=== PATIENT | male | born 1970 | race African-American/Black ===

== ENCOUNTER 2018-01-01 02:15 | Emergency (ER) | payer MEDICAID, SELFPAY ==
[2018-01-01 02:18] VITALS: BP 186/113; PULSE 68; RESP 16; TEMP 37; O2SAT 100; BMI 36.6
--- NOTE | 2018-01-01 03:16 | ED.VISSUMM ---
- ER Visit Summary Date of Service: 01/01/18 Chief Complaint: Sinus pressure History of Present Illness: The patient is a 47 M presenting with sinus pressure. He states he has had this for the past 2 weeks. It worsened over the last 2 days. He has had postnasal drainage. Denies sore throat. Denies fever. He states he woke up tonight with facial pain. It was not relieved by Aleve. Denies other complaints. Physical Examination: Vitals are stable. Patient is afebrile. Alert no acute distress. HEENT exam left maxillary sinus tenderness. No intraoral fluctuance. Pharynx is normal. Neck is supple. No meningismus Lungs are clear and equal bilaterally. Heart is regular rate and rhythm. Abdomen is soft nontender nondistended. Extremities are unremarkable. Skin is warm and dry. No rash No focal neurologic deficit. Remainder of exam is unremarkable. Emergency Department Course and Treatment: Patient states his symptoms have been ongoing for 2 weeks. He will be given doxycycline due to penicillin allergy. He was given Mucinex. Advised to follow-up with his primary care physician. Advised return to the ED for worsening complaints. Disposition: Discharge home Impression: Sinusitis This note was generated with [employer] dictation software. It may contain incorrect words, spelling, and punctuation that were not noted in review of the chart prior to signing ED Disposition - Plan for ED Patient: Chief Complaint: Cold Sx Referrals: Priyank Tam MD [Primary Care Provider] -
--- NOTE | 2018-01-01 03:22 | ED.DEP ---
ED Disposition - Plan for ED Patient: Chief Complaint: Cold Sx Instructions: ED Sinusitis Abx Tx Prescriptions: Doxycycline Monohydrate 100 mg PO BID #20 capsule Guaifenesin [Mucinex] 1,200 mg PO BID PRN #20 tbmp.12hr PRN Reason: Congestion Referrals: Priyank Tam MD [Primary Care Provider] -
[2018-01-01] MEDS: Doxycycline 100 MG CAPSULE PO (03:28)
[2018-01-01] MEDS: guaiFENesin 1,200 MG Tablet 1200 MG PO (03:28)
[2018-01-01 03:33] VITALS: BP 186/114; PULSE 56; RESP 18; O2SAT 99
== END 2018-01-01 03:34 | disposition home or self-care (01) ==
LOC: ED 03:26
PROVIDERS: Emergency Provider Emergency Medicine; Family Provider Family Medicine; PCP Family Medicine
DX: J32.9 Chronic sinusitis, unspecified (principal); I10 Essential (primary) hypertension; K21.9 Gastro-esophageal reflux disease without esophagitis; Z72.0 Tobacco use; Z88.0 Allergy status to penicillin
CPT/HCPCS: 99283

== ENCOUNTER 2018-06-12 16:04 | Emergency (ER) | payer MEDICAID, SELFPAY ==
[2018-06-12 16:04] VITALS: BP 169/116; PULSE 61; RESP 18; TEMP 36.3; O2SAT 98; BMI 38.2
--- NOTE | 2018-06-12 16:17 | ED.VISSUMM ---
- ER Visit Summary Date of Service: 06/12/18 Chief Complaint: Left hip pain History of Present Illness: The patient is a 47 M who presents with left hip pain that began after getting out of his pickup truck today. Patient denies falling. Patient states the pain is worse with any movement. Patient describes the pain as burning and sharp. Patient denies any radiation of the pain. Patient denies any paresthesias or weakness. Physical Examination: Vital signs are stable. Patient is afebrile. Patient is in no acute distress. There is tenderness over the lateral posterior aspect of the left hip. There is no shortening or external rotation. There is no other deformity noted. Range of motion was limited on internal and external rotation secondary to pain. There is also some limitations on flexion secondary to pain. Sensation was intact to light touch in all dermatomes of the lower extremities bilaterally. There are no motor deficits noted. Pedal pulses are equal bilaterally. The remaining physical exam is within normal limits. Test Results: X-rays of the left hip were obtained. There is no acute fracture. Emergency Department Course and Treatment: Patient was given injection of morphine here. Patient was given a prescription for Naprosyn. Patient was instructed to apply ice to the left hip. Patient was instructed to follow-up with his primary care physician in 7-10 days. Patient understood and was agreeable with the plan. All questions were answered. Disposition: Discharged home Impression: Left hip strain This note was generated with [employer] dictation software. It may contain incorrect words, spelling, and punctuation that were not noted in review of the chart prior to signing ED Disposition - Plan for ED Patient: Disposition: Home or Assisted Living Chief Complaint: Lower Extremity Injury Diagnosis: Muscle strain of left hip Instructions: ED Sprain Hip Prescriptions: Naproxen [Naprosyn] 500 mg PO BID PRN #20 tab Referrals: Priyank Tam MD [Primary Care Provider] -
[2018-06-12 16:43] LABS: Absolute Lymphocyte Count 1.89 X10^3/ul (0.83-4.51); Absolute Neutrophil Count 5.9 X10^3/uL (2.0-7.7); Basophil# 0.03 X10^3/uL; Basophil% 0.4 % (0-1); Eosinophil# 0.19 X10^3/uL; Eosinophils% 2.2 % (0-5); Hematocrit 41.4 % (40-54); Hemoglobin 13.9 g/dl (13.0-16.5); Lymphocyte # 1.89 X10^3/ul (4.0); Lymphocyte % 22.2 % (19-41); Mean Corp Hgb Conc 33.6 g/gl (32-36); Mean Corpuscular Volume 92.4 fL (80-94); Monocyte# 0.46 X10^3/uL; Monocyte% 5.4 % (0-10); Neutrophil # 5.94 X10^3/uL (2.7-7.7); Neutrophil % 69.8 % (47-70); POSITIVE COUNT NO; POSITIVE DIFFERENTIAL NO; POSITIVE MORPHOLOGY NO; Platelet Count 218 K/mm3 (150-450); RBC Distribution Width CV 13.3 % (11.6-14.6); RBC Distribution Width SD 45.2 fl (35.1-43.9); Red Blood Count 4.48 M/mm3 (4.6-6.2); White Blood Count 8.5 K/mm3 (4.4-11.0)
[2018-06-12 16:58] LABS: ALB/GLOB Ratio 0.9 RATIO (0.9-2.4); AST(SGOT) 19 U/L (15-37); Alanine Aminotransfer ALT/SGPT 22 U/L (16-61); Albumin, Serum 3.7 g/dL (3.2-5.0); Alkaline Phosphatase 67 U/L (45-117); Anion Gap 6 (5-15); BUN 9 mg/dL (7-18); BUN/Creat Ratio 6.4 RATIO (10-20); Calcium,Total 8.8 mg/dL (8.5-10.1); Chloride 106 mmol/L (98-107); Creatinine, Serum 1.41 mg/dL (0.70-1.30); EST Glomerular Filtration Rate 57 mL/min (>60); Est Glom Filt Rate - Afr Amer 69 mL/min (>60); Estimated Creatinine Clearance 64.77 ml/min; Globulin 3.9 g/dL (2.2-4.2); Glucose 103 mg/dL (74-106); Potassium 2.9 mmol/L (3.5-5.1); Protein, Total 7.6 g/dL (6.4-8.2); Sodium Level 141 mmol/L (136-145)
[2018-06-12] MEDS: Morphine 4 MG/ML Syringe IV (17:03)
[2018-06-12 18:38] VITALS: BP 158/97; PULSE 53; RESP 14; O2SAT 99
== END 2018-06-12 18:58 | disposition home or self-care (01) ==
PROVIDERS: Emergency Provider Emergency Medicine; Family Provider Family Medicine; PCP Family Medicine
DX: S76.012A Strain of muscle, fascia and tendon of left hip, initial encounter (principal); X50.1XXA Overexertion from prolonged static or awkward postures, initial encounter; Y93.9 Activity, unspecified; Y92.89 Other specified places as the place of occurrence of the external cause; Y99.9 Unspecified external cause status; K21.9 Gastro-esophageal reflux disease without esophagitis; I10 Essential (primary) hypertension; M79.7 Fibromyalgia
CPT/HCPCS: 73502; 80053; 85025; 96372; 96374; 99283; A4216

== ENCOUNTER 2019-06-03 13:51 | Emergency (ER) | payer MEDICAID, SELFPAY ==
[2019-06-03 13:53] VITALS: BP 186/108; PULSE 63; RESP 14; TEMP 36.3; O2SAT 99; BMI 36.6
--- NOTE | 2019-06-03 14:41 | ED.DCSUM_ITS ---
- ER Visit Summary Date of Service: 06/03/19 Chief Complaint: Neck stiffness History of Present Illness: The patient is a 48 M history of arthritis, hypertension and congenitally only one kidney. Patient is never had any neck surgery. No recent neck injury. States he woke up this morning with neck stiffness. Denies any fever. No headache. No weakness in his arms or legs. He has had similar episodes like this before. He also states yesterday he punctured his right small finger with a carlee nail as it was sticking out and caught his hand on it. He denies any complaints just wants his tetanus updated. Physical Examination: Middle-aged male. No acute distress. Vital signs are stable afebrile. H EENT exam unremarkable. Neck he has paraspinal soft tissue tenderness and in his upper mid back. Trachea is midline. No lymphadenopathy. He has limited flexion extension of his neck due to discomfort. Limited rotation due to discomfort. Exam is consistent with muscle spasms. Lungs clear to auscultation bilaterally. Heart regular rhythm no murmur. Abdomen soft non tender. Extremities moves all 4. He has 5 5 motor strength with instructional paraprofessional strength bilaterally. Dorsi plantarflexion intact. Equal symmetric. Normal sensation. Normal range of motion both upper and lower extremities. Back reproducible paraspinal muscular tenderness. Neurologically is awake and alert with no focal motor deficits. He is acting appropriately. Right TM exam is unremarkable. He is a puncture wound on the right lateral small finger just distal to the metacarpal phalangeal joint. There is no significant swelling. He has full flexion extension. There is no acute signs of infection. No lymphangitic streaking. Hands neurovascular intact. Test Results: None Emergency Department Course and Treatment: This will be updated. He will be given Motrin for his neck pain. Examined history consistent with muscular skeletal neck pain. Treatment Plan: Motrin for pain. Skelaxin as a muscle relaxant. Follow-up if is not improving. Disposition: Discharge Impression: Musculoskeletal neck stiffness Puncture wound right hand Tetanus updated This note was generated with [employer] dictation software. It may contain incorrect words, spelling, and punctuation that were not noted in review of the chart prior to signing ED Disposition - Plan for ED Patient: Referrals: Priyank Tam MD [Primary Care Provider] -
--- NOTE | 2019-06-03 14:45 | ED.DEP ---
ED Disposition - Plan for ED Patient: Disposition: Home or Assisted Living Instructions: NECK PAIN, No Trauma Prescriptions: Ibuprofen [Motrin] 600 mg PO Q8H PRN PRN #20 tab PRN Reason: Pain Prescription Printed Metaxalone [Skelaxin] 800 mg PO TID #20 tab Prescription Printed Referrals: Priyank Tam MD [Primary Care Provider] - 1 Week if not improving Additional Instructions: Hot shower, warm compresses and massage for your neck. Motrin for pain and inflammation. Skelaxin for muscle spasms. Follow-up if not improving.
[2019-06-03] MEDS: Ibuprofen 600 MG Tablet PO (14:50)
[2019-06-03] MEDS: Diphth,Pertuss(Acell),Tet Vac 0.5 ML Vial IM (14:51)
== END 2019-06-03 15:14 | disposition home or self-care (01) ==
PROVIDERS: Emergency Provider Emergency Medicine; Family Provider Family Medicine; PCP Family Medicine
DX: S61.236A Puncture wound without foreign body of right little finger without damage to nail, initial encounter (principal); S61.431A Puncture wound without foreign body of right hand, initial encounter; W45.0XXA Nail entering through skin, initial encounter; Y93.9 Activity, unspecified; Y92.89 Other specified places as the place of occurrence of the external cause; Y99.8 Other external cause status; M54.2 Cervicalgia; I10 Essential (primary) hypertension; Z23 Encounter for immunization
CPT/HCPCS: 90471; 90715; 99283

== ENCOUNTER 2021-01-04 01:42 | Emergency (ER) | payer MEDICAID, SELFPAY ==
[2021-01-04 01:43] VITALS: BP 165/88; PULSE 75; RESP 18; TEMP 36.6; O2SAT 100; BMI 35.5
--- NOTE | 2021-01-04 02:16 | RAD_ITS ---
STUDY: X-RAY - RIGHT SHOULDER REASON FOR EXAM: Male, 50 years old. pain TECHNIQUE: 3 view(s) of the shoulder. COMPARISON: None. FINDINGS: There is mild degenerative arthrosis of the glenohumeral articulation. There is degenerative arthrosis of the acromioclavicular joint without inferior osseous spur formation. Normal acromion. Normal humeral head and visualized proximal humerus. The soft tissue structures are unremarkable. Normal visualized pulmonary apex. RAD/Shoulder min 2 Views IMPRESSION: Degenerative arthrosis of the shoulder. Electronically Signed: Ana Luisa Gar MD at 2:45 EDT Tel , Service support ,
[2021-01-04] MEDS: Ibuprofen 600 MG Tablet PO (02:25)
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
[2021-01-04] MEDS: Ketorolac 60 MG/2 ML Vial IM (03:16)
== END 2021-01-04 03:17 | disposition home or self-care (01) ==
LOC: ED 02:43
PROVIDERS: Emergency Provider Emergency Medicine; PCP Family Medicine
DX: M75.51 Bursitis of right shoulder (principal); I10 Essential (primary) hypertension; K21.9 Gastro-esophageal reflux disease without esophagitis
CPT/HCPCS: 73030

== ENCOUNTER 2021-01-04 23:15 | Emergency (ER) | payer MEDICAID, SELFPAY ==
[2021-01-04 01:43] VITALS: BMI 35.5
[2021-01-04 23:19] VITALS: BP 154/96; PULSE 84; RESP 16; TEMP 36.2; O2SAT 98; BMI 33.2
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
[2021-01-04 23:26] VITALS: BP 137/84; PULSE 76; RESP 16; O2SAT 95
[2021-01-04] MEDS: Lidocaine 1% (20 ml mdv) 20 ML Vial INFILT (23:46)
--- NOTE | 2021-01-05 00:12 | ED.RN ---
[facility] WAS CALLED FOR A EVALUATION
[2021-01-05] MEDS: Diphth,Pertuss(Acell),Tet Vac 0.5 ML Vial IM (00:16)
[2021-01-05] MEDS: metroNIDAZOLE 500 MG Tablet PO (00:16)
[2021-01-05 00:20] VITALS: BP 128/80; PULSE 99; RESP 17; TEMP 36.7; O2SAT 97
[2021-01-05] MEDS: CEFUROXIME AXETIL 250 MG TABLET 500 MG PO (00:26)
[2021-01-05 01:07] VITALS: PULSE 70; RESP 16; O2SAT 97
== END 2021-01-05 01:08 | disposition home or self-care (01) ==
PROVIDERS: Emergency Provider Emergency Medicine; PCP Family Medicine
DX: S01.551A Open bite of lip, initial encounter (principal); W54.0XXA Bitten by dog, initial encounter; Z88.0 Allergy status to penicillin; Z23 Encounter for immunization
CPT/HCPCS: 12013; 73030; 90471; 90715; 96372; 99283; 99285

== ENCOUNTER 2021-01-06 21:03 | Emergency (ER) | payer MEDICAID, SELFPAY ==
--- NOTE | 2021-01-06 21:04 | EKG12_ITS ---
Test Reason : [facility] Blood Pressure : / mmHG Vent. Rate : 061 BPM Atrial Rate : 061 BPM P-R Int : 174 ms QRS Dur : 110 ms QT Int : 428 ms P-R-T Axes : 075 070 064 degrees QTc Int : 430 ms Normal sinus rhythm Minimal voltage criteria for LVH, may be normal variant Borderline ECG Confirmed by ANUJ FUNEZ, ROXANA ([id number]), fan mail editor [employer] ([id number]) on 01/10/2021 10:29:44 AM Referred By: JENNI Confirmed By:ROXANA LESLIE MD
[2021-01-06 21:05] VITALS: BP 146/98; PULSE 56; RESP 28; TEMP 35.6; O2SAT 99
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
[2021-01-06] MEDS: Ziprasidone IM 20 MG/ML VIAL IM (21:11)
[2021-01-06] MEDS: LORazepam 2 MG/ML Syringe IM (21:11)
[2021-01-06] MEDS: DiphenhydrAMINE 50 MG/ML Syringe IM (21:11)
[2021-01-06 21:18] VITALS: BP 126/86; PULSE 76; RESP 19; O2SAT 98
--- NOTE | 2021-01-06 21:22 | CT_ITS ---
STUDY: CT BRAIN WITHOUT CONTRAST REASON FOR EXAM: Male, 50 years old. Confusion RADIATION DOSAGE (If Supplied By Facility): CTDIvol = ( 44.99 ) mGy, DLP = ( 846.73 ) mGycm TECHNIQUE: Transaxial CT imaging of the brain was performed without administration of intravenous contrast material. Individualized dose optimization techniques were used for this CT. COMPARISON: 03/25/2013 FINDINGS: Normal soft tissue structures. There is a stable ground glass appearing bony density within the sphenoid bone within the sphenoid sinus with an appearance most consistent with fibrous dysplasia. Normal size ventricles and extra-axial spaces for the patient''s age. Normal white matter tracts of the cerebral hemispheres. Normal basal ganglia and thalami. Normal brainstem. Normal cerebellum. There is no intracranial hemorrhage. There are no findings of an acute ischemic infarction. CT/Brain/Head without Contrast IMPRESSION: No acute intracranial process. Electronically Signed: Thania Tamayo MD at 22:12 EDT Tel , Service support ,
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
[2021-01-06 21:34] LABS: Absolute Lymphocyte Count 2.51 X10^3/uL (0.83-4.51); Absolute Neutrophil Count 4.9 X10^3/uL (2.0-7.7); Basophil# 0.04 X10^3/uL; Basophil% 0.5 % (0-1); Eosinophils% 5.8 % (0-5); Hematocrit 35.5 % (40-54); Hemoglobin 11.7 g/dL (13.0-16.5); Lymphocyte # 2.51 X10^3/ul (4.0); Lymphocyte % 29.3 % (19-41); Mean Corpuscular Volume 94.2 fL (80-94); Mean Platelet Vol. 9.6 fl (6.2-12.0); Monocyte# 0.59 X10^3/uL; Monocyte% 6.9 % (0-10); NRBC Flagged by Analyzer 0 % (0-5); Neutrophil % 57.1 % (47-70); Platelet Count 238 K/mm3 (150-450); RBC Distribution Width CV 12.7 % (11.6-14.6); RBC Distribution Width SD 43.8 fl (35.1-43.9); Red Blood Count 3.77 M/mm3 (4.6-6.2); White Blood Count 8.6 K/mm3 (4.4-11.0)
[2021-01-06 21:50] LABS: Anion Gap 8 (5-15); BUN 23 mg/dL (7-18); BUN/Creat Ratio 12.6 RATIO (10-20); Calcium,Total 8.8 mg/dL (8.5-10.1); Chloride 109 mmol/L (98-107); Creatinine, Serum 1.83 mg/dL (0.70-1.30); EST Glomerular Filtration Rate 42 mL/min (>60); Est Glom Filt Rate - Afr Amer 51 mL/min (>60); Estimated Creatinine Clearance 54.58 ml/min; Glucose 91 mg/dL (74-106); Potassium 3.4 mmol/L (3.5-5.1); Sodium Level 141 mmol/L (136-145)
--- NOTE | 2021-01-06 23:00 | ED.RN ---
RESTRAINTS DC AT THIS TIME
[2021-01-06 23:21] VITALS: BP 164/75; PULSE 55; RESP 14; O2SAT 98
[2021-01-06 23:39] LABS: Amphetamine Urine VISTA NEGATIVE (<1000 ng/mL); Barbiturate Urine VISTA NEGATIVE (< 200 ng/mL); Benzodiazepine Urine VISTA NEGATIVE (< 200 ng/mL); Cocaine Urine VISTA NEGATIVE (< 300 ng/mL); Ecstacy Urine VISTA NEGATIVE (< 500 ng/mL); Methadone Urine VISTA NEGATIVE (< 300 ng/mL); PCP Urine VISTA NEGATIVE (< 25 ng/mL); THC Urine VISTA POSITIVE (< 50 ng/mL); Vista UDS pH Range 5
[2021-01-07] VITALS (11 sets, daily range): BP systolic 133–148; BP diastolic 74–108; PULSE 69–76; RESP 14–17; TEMP 36.2; O2SAT 97–98
--- NOTE | 2021-01-07 00:54 | ED.RN ---
family updated on patient condition and status at this time
--- NOTE | 2021-01-07 01:25 | ED.RN ---
REPORT FAXED TO [facility]
--- NOTE | 2021-01-07 01:48 | ED.RN ---
CRISIS ON THE PHONE WITH THIS PT
--- NOTE | 2021-01-07 06:46 | ED.RN ---
patient being reviewed at [facility]
--- NOTE | 2021-01-07 06:47 | ED.RN ---
patient so asking to be updated once patient is discharged or transferred
[2021-01-07] MEDS: metroNIDAZOLE 500 MG Tablet PO ×2 (07:39→08:18)
[2021-01-07] MEDS: Pantoprazole Sodium 40 MG Tablet PO (08:16)
[2021-01-07] MEDS: Potassium Chloride Oral Tablet 20 MEQ PO (08:16)
[2021-01-07] MEDS: Triamterene 37.5MG/Hctz 25MG Capsule 1 CAP PO (08:17)
[2021-01-07] MEDS: Lisinopril 40 MG Tablet PO (08:17)
[2021-01-07] MEDS: NIFEdipine 30 MG Tablet PO (08:17)
[2021-01-07] MEDS: Paroxetine 20 MG Tablet PO (08:18)
[2021-01-07] MEDS: Carvedilol 25 MG Tablet PO (08:18)
[2021-01-07] MEDS: CEFUROXIME AXETIL 250 MG TABLET 500 MG PO (08:19)
--- NOTE | 2021-01-07 08:33 | ED.RN ---
PT UPDATED ABOUT PT DISPO.
--- NOTE | 2021-01-07 09:34 | ED.RN ---
pt glasses were dropped off by family at the main entrance, pt received glasses prior to leaving with ambulance.
== END 2021-01-07 09:32 ==
LOC: ED 21:17
PROVIDERS: Emergency Provider Emergency Medicine; PCP Family Medicine
DX: F30.9 Manic episode, unspecified (principal); F23 Brief psychotic disorder; F12.90 Cannabis use, unspecified, uncomplicated; F17.200 Nicotine dependence, unspecified, uncomplicated; I10 Essential (primary) hypertension; E78.5 Hyperlipidemia, unspecified; Z88.0 Allergy status to penicillin
CPT/HCPCS: 36415; 70450; 80048; 80307; 82077; 85025; 87426; 93005; 96372; 99285; J3486

== ENCOUNTER 2021-01-16 08:01 | Emergency (ER) | payer MEDICAID, SELFPAY ==
[2021-01-16] VITALS (9 sets, daily range): BP systolic 133–154; BP diastolic 76–113; PULSE 68–95; RESP 15–22; TEMP 35.7–36.7; O2SAT 98–100
--- NOTE | 2021-01-16 08:31 | EKG12_ITS ---
Test Reason : Blood Pressure : / mmHG Vent. Rate : 062 BPM Atrial Rate : 062 BPM P-R Int : 180 ms QRS Dur : 104 ms QT Int : 406 ms P-R-T Axes : 055 053 037 degrees QTc Int : 412 ms Normal sinus rhythm Normal ECG Confirmed by REBA FUNEZ, LAURO ([id number]), staff editor [employer] ([id number]) on 01/20/2021 9:25:34 AM Referred By: TALAT Confirmed By:LAURO BRITTON MD
--- NOTE | 2021-01-16 08:32 | ED.DCSUM_ITS ---
- ER Visit Summary Date of Service: 01/16/21 Chief Complaint: Manic episode History of Present Illness: The patient is a 50 M who presents with a manic episode that is been getting worse over the past 5 days. Patient states he has been feeling more manic and angry. Patient hit his right hand down on the table today and complains of pain in his right hand. Patient apparently went to his friend's house and was banging on his door this morning. Patient told his friend he needed help and needs to go see Juan Francisco. Patient's girlfriend moved out of his apartment because she was fearful that she might get hurt due to his agitation and manic episode. Patient denies any suicidal homicidal ideations. Patient denies any visual or auditory hallucinations. Physical Examination: Vital signs are stable. Patient is afebrile. Patient is in no acute distress. Oral mucosa is pink and moist. Neck is supple. Trachea is midline. There is no JVD. Heart was regular rate and rhythm. Lungs are clear and equal bilaterally. Abdomen is soft. Bowel sounds are normal. There is some mild periumbilical tenderness. There is a umbilical hernia that is easily reducible. There is no rebound or guarding noted. Cranial nerves II through XII are intact. There are no focal motor or sensory deficits noted. There is tenderness over the right hand and wrist area. There is no obvious deformity. There is good range of motion. There is some mild edema. Patient is calm and cooperative on exam. Patient denies any suicidal or homicidal ideations. Patient denies any visual or auditory hallucinations. Test Results: EKG was obtained. On my interpretation, it showed a normal sinus rhythm with a rate of 62. FL interval, QRS interval, and QTc intervals were all normal. [place] was normal. There are no acute ST or T wave changes. X-rays of the right hand were obtained. There are 3 views. On my interpretation, there is no acute fracture. There is an old healed fracture of the fifth metacarpal. There is no soft tissue swelling noted. Radiologist also interpreted the x-ray and agrees. CBC shows a slight anemia with a hemoglobin of 11.6 and hematocrit 35.4. Comprehensive metabolic profile was essentially within normal limits. Urinalysis does not show any evidence of urinary tract infection. Urine tox screen was positive for cannabinoids. Serum alcohol level was normal. Emergency Department Course and Treatment: Patient became more agitated here in the emergency department. Patient was given a dose of Geodon. Crisis counselor will be in to evaluate the patient. Patient became more detail. Patient was given a dose of Ativan. Patient had no improvement with this. Patient was given a repeat dose of Geodon. Crisis was able to arrange for inpatient admission. Patient will be transferred. Disposition: Transfer to psychiatric hospital Impression: 1. Agitation This note was generated with [employer] dictation software. It may contain incorrect words, spelling, and punctuation that were not noted in review of the chart prior to signing ED Disposition - Plan for ED Patient: Disposition: Psychiatric Hospital or Unit Diagnosis: Agitation Referrals: Priyank Tam MD [Primary Care Provider] -
--- NOTE | 2021-01-16 08:36 | RAD_ITS ---
HISTORY: Injury/Pain ADDITIONAL HISTORY: None provided. EXAMINATION/TECHNIQUE: XR Hand Min 3 Views Right Number of images including paperwork: 3 COMPARISON: None FINDINGS: BONES: No acute fracture. Old right fifth metacarpal fracture. JOINTS: No subluxation. SOFT TISSUES: No distinct foreign body. RAD/Hand Min 3 Views IMPRESSION: No acute osseous abnormality. at 0931 Reported and signed by: Amelia Matta MD Electronically Signed: Amelia Matta MD at 9:31 EDT Tel , Service support ,
[2021-01-16 08:48] LABS: Bacteria 0 SEEN /hpf (None Seen); Mucous, Urine 0 SEEN /hpf (<or=2+)
[2021-01-16 08:53] LABS: Absolute Lymphocyte Count 1.59 X10^3/uL (0.83-4.51); Absolute Neutrophil Count 3.9 X10^3/uL (2.0-7.7); Basophil# 0.03 X10^3/uL; Basophil% 0.5 % (0-1); Eosinophil# 0.31 X10^3/uL; Eosinophils% 4.9 % (0-5); Hematocrit 35.4 % (40-54); Hemoglobin 11.6 g/dL (13.0-16.5); Lymphocyte # 1.59 X10^3/ul (4.0); Lymphocyte % 25.2 % (19-41); Mean Corp Hgb Conc 32.8 g/dL (32-36); Mean Corpuscular Hgb 31.1 pg (27.0-32.0); Mean Corpuscular Volume 94.9 fL (80-94); Mean Platelet Vol. 9.1 fl (6.2-12.0); Monocyte# 0.47 X10^3/uL; Monocyte% 7.4 % (0-10); NRBC Flagged by Analyzer 0 % (0-5); Neutrophil # 3.89 X10^3/uL (2.7-7.7); Neutrophil % 61.7 % (47-70); Platelet Count 297 K/mm3 (150-450); RBC Distribution Width SD 45.5 fl (35.1-43.9); Red Blood Count 3.73 M/mm3 (4.6-6.2); White Blood Count 6.3 K/mm3 (4.4-11.0)
[2021-01-16 09:09] LABS: Color, Urine Yellow (Yellow); Glucose, Dipstick Normal (Normal); Ketone-Dipstick Negative (Negative); Leukocyte Esterase-Dipstick Negative /ul (Negative); Nitrite-Dipstick Negative (Negative); Occult Blood-Urine Negative /ul (Negative); Protein-Dipstick 15 mg/dl (Negative); Specific Gravity, Urine 1.025 (1.002-1.030); Urine Bilirubin Dipstick Negative (Negative); Urine Clarity Clear (Clear); Urine Urobilinogen 1 mg/dl (Normal)
[2021-01-16 09:13] LABS: AST(SGOT) 24 U/L (15-37); Alanine Aminotransfer ALT/SGPT 30 U/L (16-61); Albumin, Serum 3.4 g/dL (3.2-5.0); Alkaline Phosphatase 52 U/L (45-117); Anion Gap 3 (5-15); BUN 15 mg/dL (7-18); BUN/Creat Ratio 11.8 RATIO (10-20); Chloride 108 mmol/L (98-107); Creatinine, Serum 1.27 mg/dL (0.70-1.30); EST Glomerular Filtration Rate 64 mL/min (>60); Est Glom Filt Rate - Afr Amer 77 mL/min (>60); Estimated Creatinine Clearance 2.48 ml/min; Globulin 3.3 g/dL (2.2-4.2); Glucose 93 mg/dL (74-106); Potassium 3.5 mmol/L (3.5-5.1); Protein, Total 6.7 g/dL (6.4-8.2); Sodium Level 140 mmol/L (136-145)
[2021-01-16 09:15] LABS: Red Blood Cells-Urine 0-5 SEEN /hpf (0-5); Squamous Epithelial Cells - UA 0-5 SEEN /hpf (0-5); White Blood Cells 0-5 SEEN /hpf (0-5)
[2021-01-16 09:20] LABS: Amphetamine Urine VISTA NEGATIVE (<1000 ng/mL); Barbiturate Urine VISTA NEGATIVE (< 200 ng/mL); Benzodiazepine Urine VISTA NEGATIVE (< 200 ng/mL); Cocaine Urine VISTA NEGATIVE (< 300 ng/mL); Ecstacy Urine VISTA NEGATIVE (< 500 ng/mL); Methadone Urine VISTA NEGATIVE (< 300 ng/mL); PCP Urine VISTA NEGATIVE (< 25 ng/mL); THC Urine VISTA POSITIVE (< 50 ng/mL); Vista UDS pH Range 5
[2021-01-16 09:22] LABS: Alcohol, Blood (Medical)-Serum < 3.0 mg/dL
[2021-01-16] MEDS: Ziprasidone IM 20 MG/ML VIAL IM (10:55)
--- NOTE | 2021-01-16 11:06 | ED.RN ---
Care assumed of patient and pt medicated as pt repeating that he needs a shot for being manic. Pt cooperative with this RN at this time but pacing about room and out to hallway bathroom frequently.
[2021-01-16] MEDS: Ibuprofen 200 MG Tablet 800 MG PO (13:44)
[2021-01-16] MEDS: CEFUROXIME AXETIL 250 MG TABLET 500 MG PO (14:58)
[2021-01-16] MEDS: Metaxalone 800 MG Tablet PO (14:58)
[2021-01-16] MEDS: Triamterene 37.5MG/Hctz 25MG Capsule 1 CAP PO (14:58)
[2021-01-16] MEDS: Lisinopril 40 MG Tablet PO (14:58)
[2021-01-16] MEDS: NIFEdipine 30 MG Tablet PO (14:59)
[2021-01-16] MEDS: OXcarbazepine 150 MG Tablet PO (14:59)
[2021-01-16] MEDS: Potassium Chloride Oral Tablet 20 MEQ PO (15:10)
[2021-01-16] MEDS: LORazepam 2 MG/ML Syringe IM (16:43)
== END 2021-01-16 18:43 ==
PROVIDERS: Emergency Provider Emergency Medicine; PCP Family Medicine
DX: R45.1 Restlessness and agitation (principal); K42.9 Umbilical hernia without obstruction or gangrene
CPT/HCPCS: 73130; 80053; 80307; 81001; 82077; 85025; 87426; 93005; 96372; 99285; J3486

== ENCOUNTER 2021-01-25 09:12 | Emergency (ER) | payer MEDICAID, SELFPAY ==
[2021-01-25 09:14] VITALS: BP 136/85; PULSE 68; RESP 16; TEMP 36.9; O2SAT 100; BMI 35.4
--- NOTE | 2021-01-25 09:32 | ED.VIS.GEN ---
History of Present Illness Chief Complaint: Numb/Ting Informant: Patient, Significant Other Onset: Today Narrative: Here with significant other weight continuing and worsening sciatica and cervical radiculopathy on the right side. Chronic history of this with intermittent flares. No surgeries in the past he states he seen Dr. Ro approximately 8 years ago had injection with complications that he did not like. [facility] He is right-hand dominant. Recently admitted to [facility] for his bipolar discharge 5 days ago. States he had a flare then, was given 1 dose of Lyrica however it was not continued. Is followed by Dr. Tam is a PCP. He denies any loss of bowel or bladder control. Denies any recent imagings. Prior similar symptoms: Yes Past Medical History - Allergies and Home Meds Allergies/Adverse Reactions: Allergies codeine Allergy (Verified 01/25/21 09:13) Unknown Penicillins [PCN] Allergy (Verified 01/25/21 09:13) NEEDS FOLLOW-UP venom-honey bee [bee venom (honey bee)] Allergy (Verified 01/25/21 09:13) Swelling Primary Care Physician: Priyank Tam MD [Primary Care Provider] - Past Medical History: - - Bipolar chronic neck and back pain, hypertension Surgical History: noncontributory Smoking Status: Current some day smoker Review of Systems General: Denies: Chills, Fever, Sweats Eyes: Denies: Visual changes - bilaterally, Diplopia ENT: Denies: Rhinorrhea, Sore throat Cardiovascular: Denies: Chest pain, Palpitations Respiratory: Denies: Dyspnea, Cough, Dyspnea on exertion Gastrointestinal: Denies: Abdominal pain, Nausea, Vomiting, Diarrhea, Melena, Hematochezia Genitourinary: Denies: Dysuria, Hematuria, Frequency Musculoskeletal: Reports: Neck pain, Back pain. Denies: Extremity Pain Skin: Denies: Rash, Wounds Neurological: Reports: Weakness. Denies: Headache, Numbness Physical Exam Vital Signs/Narrative: Vital Signs Temp Pulse Resp BP Pulse Ox 01/25/21 09:14 98.5 F 68 16 136/85 H 100 General: Well nourished, Well developed, No Acute Distress, - - Cooperative, nontoxic Head: Normocephalic, Atraumatic Eyes: Perrl, EOMI ENT: Moist mucous membranes, No rhinorrhea Neck: Supple, Nontender Cardiovascular: Regular rate, Regular rhythm, No murmurs Respiratory: No distress, CTA bilaterally, Chest nontender Abdomen: Soft, Nontender, Nondistended, Normal bowel sounds Back: Nontender, Normal Inspection Extremities: Nontender, No edema Skin: Normal color, No rash Neurological: Alert, Oriented x3, Cranial nerves II-XII grossly intact, - - Right upper extremity: 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 Radicular pain along C6 dermatome. Straight leg test negative bilaterally. Patient has slight weakness of FHL compared to the left side of the lower extremity on the right. Pulses are intact x4. Psychological: Normal affect, Normal Mood Diagnostic/Tx/Re-eval 2 view cervical spine x-ray: Degenerative changes 2 view lumbar spine x-ray: Degenerative changes - Medical Decision Making Patient present with cervical radiculopathy C6 on the right, sciatica symptoms right lower extremity. He has no cauda equina symptoms. Started on Lyrica first dose in the ED. He denies any recent imaging therefore imaging cervical spine lumbar was obtained noting degenerative changes reviewed by myself. He is ambulatory in the department on reevaluation. He will follow-up with his PCP for continued outpatient treatment and reevaluation. 30-day prescription sent to his pharmacy electronically. ED Disposition - Plan for ED Patient: Disposition: Home or Assisted Living Diagnosis: Right cervical radiculopathy, Sciatica, right side Instructions: ED Sciatica, ED Radiculopathy, Cervical Prescriptions: Pregabalin [Lyrica] 75 mg PO BID #60 capsule Transmission Status: Received by [facility] Referrals: Priyank Tam MD [Primary Care Provider] - 3-5 Days
--- NOTE | 2021-01-25 09:51 | RAD_ITS ---
EXAM: XR CERVICAL SPINE, 2 OR 3 VIEWS CLINICAL INDICATION: Numbness and tingling in the right arm for one week TECHNIQUE: Frontal and lateral views of the cervical spine. This report was created using [employer] report generation technology. COMPARISON: 01/07/2014 FINDINGS: VERTEBRAE: Anterior spondylosis at mid cervical levels. Mild straightening of the normal cervical lordosis. Preserved vertebral body height. No acute fracture. No significant facet arthropathy. DISC SPACES: Disc space narrowing most conspicuous at C4-C5, C5-C6 and C6-C7. SOFT TISSUES: Unremarkable. No prevertebral soft tissue widening. LUNG APICES: Clear. RAD/Cerv Spine 2 or 3 Views IMPRESSION: Mildly worse degenerative disc disease in the mid cervical spine. Electronically Signed: Calin Estevez MD ([place]oks) at 10:16 EDT , Service support ,
--- NOTE | 2021-01-25 09:51 | RAD_ITS ---
STUDY: X-RAY - LUMBAR SPINE REASON FOR EXAM: Male, 50 years old. sciatica TECHNIQUE: 3 view(s) of the lumbar spine were obtained. COMPARISON: None FINDINGS: There is straightening of the normal lumbar lordosis. There is no substantial scoliosis. There is a normal alignment of the vertebrae. There is multilevel endplate spondylosis of the lumbar vertebrae. Mild loss of disc space at L3-L4 and L4-L5. There is no demonstrated fracture. The soft tissue structures are unremarkable. RAD/Lumbar Spine 2 or 3 Views IMPRESSION: Mild degenerative changes. Electronically Signed: Calin Estevez MD ([place]) at 10:17 EDT , Service support ,
[2021-01-25] MEDS: Pregabalin 75 MG Capsule PO (09:55)
== END 2021-01-25 10:31 | disposition home or self-care (01) ==
PROVIDERS: Emergency Provider Emergency Medicine; PCP Family Medicine
DX: M54.12 Radiculopathy, cervical region (principal); M54.31 Sciatica, right side; I10 Essential (primary) hypertension; Z88.0 Allergy status to penicillin
CPT/HCPCS: 72040; 72100; 99283

== ENCOUNTER 2021-06-09 12:41 | Emergency (ER) | payer MEDICAID, SELFPAY ==
[2021-06-09 12:42] VITALS: BP 151/102; PULSE 52; RESP 18; TEMP 36.3; O2SAT 100; BMI 40.4
== END 2021-06-09 13:00 ==
LOC: ED 13:22
PROVIDERS: PCP Family Medicine
DX: M54.9 Dorsalgia, unspecified (principal)

== ENCOUNTER 2021-06-09 18:19 | Emergency (ER) | payer MEDICAID, SELFPAY | END 2021-06-09 18:20 | LOC: ED 18:43 | PROVIDERS: PCP Family Medicine | DX: R10.9 Unspecified abdominal pain (principal) ==

== ENCOUNTER 2025-01-01 03:07 | Emergency (ER) | payer MEDICAID, SELFPAY ==
[2025-01-01 03:07] VITALS: BP 133/82; PULSE 62; RESP 18; TEMP 36.7; O2SAT 98; BMI 47.1
[2025-01-01] MEDS: Ibuprofen 600 MG Tablet PO (03:50)
[2025-01-01] MEDS: morphine 10 MG/ML Syringe IM (03:50)
--- NOTE | 2025-01-01 04:00 | RAD_ITS ---
PROCEDURE: KNEE 4 OR MORE VIEWS REASON FOR EXAM: INJURY/PAIN TECHNIQUE: 4 view(s) of the right knee COMPARISON: None. FINDINGS: No fracture. No suspicious bone lesion. Normal alignment. No effusion. Round calcification within the soft tissue medial to the right tibia. This is of unknown clinical significance. RAD/Knee 4 or More Views IMPRESSION: No evidence of fracture or dislocation seen within the right knee. No signific ant arthritis. Reading Location: [id number]
--- NOTE | 2025-01-01 04:12 | ED.VIS.LOWEX ---
HPI History of Present Illness Chief Complaint: Lower Extremity Injury Informant: patient Narrative Narrative: Patient is a 54-year-old male with history of hypertension, depression and GERD as well as osteoarthritis (he thinks) presenting with worsening right knee pain. Patient states he recently drove to and from [place]. He notes starting last night he developed severe right knee pain. States he could not get out of bed. Did not take anything for his pain prior to arrival. Denies any trauma. Denies any history of gout. I was able to drive himself here. Denies associate numbness or tingling. States the pain is localized to his knee diffusely. Does not radiate. Worse with movement. Denies any associated swelling of his leg but states that his knee feels swollen even though it does not look swollen. Denies any chest pain or shortness of breath. Denies history of DVT or PE. No other complaints or concerns reported at this time. [facility] Medical History Depression Hypertension GERD (gastroesophageal reflux disease) Home Medications ?Medication ?Instructions ?Recorded ?Last Taken ?Type omeprazole 20 mg capsule,delayed 20 mg PO DAILY 01/28/14 06/12/18 History release triamterene 37.5 1 tab PO DAILY 06/12/18 06/12/18 History mg-hydrochlorothiazide 25 mg capsule carvedilol 25 mg tablet 25 mg PO BID 06/03/19 Unknown History lisinopril 40 mg tablet 40 mg PO DAILY 06/03/19 Unknown History metaxalone 800 mg tablet 800 mg PO TID ##20 06/03/19 Unknown Rx nifedipine 30 mg tablet,extended 30 mg PO DAILY 06/03/19 Unknown History release 24 hr paroxetine HCl 20 mg tablet 20 mg PO DAILY 06/03/19 Unknown History potassium chloride 20 mEq 20 meq PO DAILY 06/03/19 Unknown History tablet,extended release(part/cryst) amantadine HCl 100 mg capsule mg 01/01/25 Unknown History aripiprazole 10 mg tablet mg DAILY 01/01/25 Unknown History fluoxetine 20 mg capsule 20 mg PO DAILY 01/01/25 Unknown History hydroxyzine pamoate 25 mg capsule mg 01/01/25 Unknown History ibuprofen 600 mg tablet 600 mg PO Q6H PRN pain #20 tabs 01/01/25 Unknown Rx oxcarbazepine 300 mg tablet mg 01/01/25 Unknown History tiotropium bromide 2.5 2 inh inhalation DAILY 01/01/25 Unknown History mcg/actuation mist for inhalation (Spiriva Respimat) Allergy/AdvReac Type Severity Reaction Status Date / Time codeine Allergy Unknown Verified 01/01/25 03:08 Penicillins (PCN) Allergy NEEDS Verified 01/01/25 03:08 FOLLOW-UP venom-honey bee (bee venom Allergy Swelling Verified 01/01/25 03:08 (honey bee)) Surgical History H/O knee surgery Social History Smoking Status: Former smoker ROS ROS ED Constitutional Constitutional ED: Denies chills or fever(s) Cardiovascular Cardiovascular: Denies chest pain Respiratory/Chest Respiratory/Chest: Denies cough or dyspnea Gastrointestinal Gastrointestinal: Denies nausea or vomiting Musculoskeletal Musculoskeletal: Reports other Details: right knee pain Integumentary Denies rash Neurologic Neurologic: Denies paresthesias or weakness Hematologic/Lymphatic Hematologic/Lymphatic: Denies easy bleeding or easy bruising EXAM Physical Exam Const Vital Signs: 01/01/25 03:07 Temperature 98.1 F Temperature Source Oral Pulse Rate 62 Respiratory Rate 18 Blood Pressure 133/82 H Blood Pressure Mean 99 Pulse Ox 98 Oxygen Delivery Method Room Air Positive well nourished and well developed General Appearance ED: well developed and NAD HEENT Reports moist mucous membranes Neck supple Chest Wall inspection of chest normal Resp normal respiratory effort Cardio regular rate and regular rhythm Cardio Narrative: 2+ DP pulses Extremity normal to inspection Extremity Narrative: Decreased range of motion of the right knee secondary pain. Normal extensor mechanism of the knee. No associated warmth or effusion noted of the knee. Patient does not tolerate ligamentous stability testing secondary to pain. No short arc range of motion pain. Compartments are soft. No peripheral edema appreciated. Neuro oriented x3, moves all extremities and no sensory deficits noted Sensorium / Orientation: alert Motor Exam: Negative for general weakness Skin no wounds Rashes: no rashes MDM MDM MDM Narrative Medical decision making narrative: Patient's evaluated for worsening right knee pain. Did recently drive to and from [place] (about 30 hours in the car). Vital signs normal. Did not take any for pain prior to arrival. Differential includes osteoarthritis, tendinitis, knee strain/sprain, gout, septic joint and DVT. As it is after hours do not have formal ultrasound available for DVT study however physical exam not consistent with DVT. Bedside ultrasound performed by myself shows good visualization of the popliteal and peroneal veins I do not appreciate any DVT. Vessels that are visualized are compressible. X-ray reviewed by myself as well as radiology does not show any acute process or significant arthritis. Patient given Motrin and IM morphine. On repeat evaluation his pain improved. Range of motion has improved with the knee. Will be discharged home with conservative treatment including NSAIDs (patient denies any history of kidney disease) and outpatient follow-up with PCP. Given a prescription for the emergency room. Given return precautions. He verbalized given understands plan. Discharged home in stable improved condition. Radiography Diagnostic Testing: Clinical Impression(s) from Imaging Studies Knee X-Ray 01/01/25 04:00 IMPRESSION: No evidence of fracture or dislocation seen within the right knee. No significant arthritis. Reading Location: [id number] Discharge Plan Triage Chief Complaint: Lower Extremity Injury ED Provider: Sharee Red Dx/Rx/DC Orders Clinical Impression: Acute pain of right knee Instructions: ED Knee Pain of Uncertain Cause Prescriptions: New ibuprofen 600 mg tablet 600 mg PO Q6H PRN (Reason: pain) Qty: 20 0RF No Action omeprazole 20 MG capsule 20 mg PO DAILY triamterene-hydrochlorothiazid 0 capsule 1 tab PO DAILY Patient Comments: nifedipine 30 MG tablet extended release 24hr 30 mg PO DAILY carvedilol 25 MG tablet 25 mg PO BID potassium chloride 20 MEQ tablet 20 meq PO DAILY paroxetine HCl 20 MG tablet 20 mg PO DAILY lisinopril 40 MG tablet 40 mg PO DAILY metaxalone 800 MG tablet 800 mg PO TID Qty: 20 0RF oxcarbazepine 300 mg tablet amantadine HCl 100 mg capsule Patient Comments: [NO ORIGINAL SIG] fluoxetine 20 mg capsule 20 mg PO DAILY hydroxyzine pamoate 25 mg capsule aripiprazole 10 mg tablet DAILY Spiriva Respimat 2.5 mcg/actuation mist 2 inh INHALATION DAILY Primary Care Provider: Priyank Tam Referrals: Yonatan,Priyank, MD [Primary Care Provider] - Activity Restrictions/Additional Instructions: Wear João wrap as needed for pain and stability. Take medication prescribed. Apply ice to the knee. Follow-up with your primary care doctor. Your x-ray was normal. I have a low suspicion for blood clot based on bedside ultrasound today. Print Language: Micronesian Disposition Disposition: Home, Self Care
[2025-01-01 05:00] VITALS: BP 96/59; PULSE 50; RESP 18; TEMP 36.8; O2SAT 96
== END 2025-01-01 05:17 | disposition home or self-care (01) ==
PROVIDERS: Emergency Provider Emergency Medicine; PCP Family Medicine; Visit Provider Emergency Medicine
DX: M25.561 Pain in right knee (principal); I10 Essential (primary) hypertension; Z87.891 Personal history of nicotine dependence; K21.9 Gastro-esophageal reflux disease without esophagitis; F32.A Depression, unspecified
CPT/HCPCS: 73564; 99282